=== PATIENT | female | born 2000 | race Caucasian/White ===

== ENCOUNTER → 2020-02-02 | Outpatient (CLI) | payer OTHER ==
--- NOTE | 2020-02-02 18:01 | Diagnostic Imaging Report ---
INDICATION: Back pain. EXAMINATION: Scoliosis standing view. FINDINGS: There is very slight leftward convexity lower thoracic curvature of less than 5 degrees. No segmentation anomaly or dysraphism. No lateral views. IMPRESSION: There is very minimal leftward convexity curvature of the lower thoracic spine which could be positional and measures less than 5 degrees. Dictated by: Dictated on workstation # [id number]
== END ==
LOC: RAD 16:53
PROVIDERS: ATTEND Internal Medicine
DX: M54.9 Dorsalgia, unspecified (principal)
CPT/HCPCS: 72081

== ENCOUNTER 2022-04-27 18:59 | Emergency (ER) | payer OTHER ==
[~2022-04-27] VITALS: Ht 172.7 cm; Wt 81.6 kg
--- NOTE | 2022-04-27 19:32 | ED Neck-Back Pain/Injury ---
General Chief Complaint: Head/Cervical Problems Stated Complaint: NECK POPPED,NERVE PAIN,UNABLE TO TURN HEAD Nursing Triage Note: PT AMB TO FT 1 W C/O NECK PAIN AND STIFFNESS X2 HRS. PT REPORTS SHE TURNED HER HEAD AND FELT A POP, SINCE THEN PT HAS BEEN EXPERIENCING POOR ROM AND PAIN. PT A&OX4. Source of Information: Patient Exam Limitations: No Limitations History of Present Illness Date Seen by Provider: Apr 27, 2022 Time Seen by Provider: 19:32 Allergies and Home Medications Allergies Coded Allergies: No Known Drug Allergies (Unverified , 04/27/22) Past Fqdkbms-Ededzq-Xbalmn Hx Patient Social History Tobacco Use?: No Use of E-Cig and/or Vaping dev: No Substance use?: No Alcohol Use?: No Immunizations Up To Date Influenza Vaccine Up-to-Date: No; Not Current First/Initial COVID19 Vaccinat: NONE Second COVID19 Vaccination Bam: NONE Third COVID19 Vaccination Date: NONE COVID19 Vaccine [employer] Work[employer]: NONE Past Medical History Last Menstrual Period: Apr 24, 2022 Physical Exam Vital Signs Vital Signs - First Documented 04/27/22 19:04 Temp 36.6 Pulse 110 Resp 20 B/P (MAP) 128/74 (92) Pulse Ox 98 O2 Delivery Room Air Capillary Refill : Less Than 3 Seconds Height, Weight, BMI Height: '" Weight: lbs. oz. kg; 27.00 BMI Method: Progress/Results/Core Measures Results/Orders My Orders Orders - TK CHASE APRN Urine Bedside (04/27/22 19:04) Ed Iv/Invasive Line Start (04/27/22 19:04) Ct Angio Head/Neck (04/27/22 19:28) Ed Iv/Invasive Line Start (04/27/22 19:28) Iohexol Injection (Omnipaque 350 Mg/Ml 1 (04/27/22 20:00) Received Contrast (Hold Metformin- Contr (04/27/22 20:00) Ns (Ivpb) (Sodium Chloride 0.9% Ivpb Bag (04/27/22 20:00) Rx-Cyclobenzaprine Tablet (Rx-Flexeril T (04/27/22 20:18) Medications Given in ED Current Medications Medications Dose Ordered Sig/Aaliyah Route Start Time Stop Time Status Last Admin Dose Admin Iohexol 75 ml ONCE ONCE IV 04/27/22 20:00 04/27/22 20:02 DC 04/27/22 20:06 75 ML Sodium Chloride 100 ml ONCE ONCE IV 04/27/22 20:00 04/27/22 20:02 DC 04/27/22 20:06 80 ML Vital Signs/I&O 04/27/22 19:04 Temp 36.6 Pulse 110 Resp 20 B/P (MAP) 128/74 (92) Pulse Ox 98 O2 Delivery Room Air Blood Pressure Mean: 92 Departure Impression Primary Impression: Neck pain Disposition: HOME, SELF-CARE Condition: Stable Departure-Patient Inst. Decision time for Depature: 20:25 Referrals: CHANG MOSQUEDA APRN (PCP) Primary Care Physician [facility] (Family) Primary Care Physician Patient Instructions: Neck Pain ED Add. Discharge Instructions: Plan: 1. Continue to use heat pad 20 minutes at a time for comfort. 2. You can take Flexeril 10 mg by mouth every 8 hours as needed for muscle spasm/pain. Do not drive while taking. 3. Follow-up with your primary care provider regarding persistent symptoms. 3. Return to the ER for any new, concerning, worsening symptoms. All discharge instructions reviewed with patient and/or family. Voiced understanding. TK CHASE APRN Apr 27, 2022 19:32
[2022-04-27] MEDS ORDERED: HOLD METFORMIN - RECEIVED CONTRAST 20 ML VIAL IV SCH (20:00)
[2022-04-27] MEDS ORDERED: IOHEXOL 350 MG/ML 100 ML (OMNIPAQUE 350) VIAL IV ONE (20:00)
[2022-04-27] MEDS ORDERED: NS 100 ML (IVPB) BAG IV ONE (20:00)
--- NOTE | 2022-04-27 20:09 | Diagnostic Imaging Report ---
INDICATION: Popping sensation in neck, pain. TECHNIQUE: Contiguous noncontrast images were obtained from the skull base through the vertex. After intravenous contrast administration, helical CT angiography of the neck was performed. Source data was reformatted into 3D MIP projections. Delayed post contrast acquisition was also obtained. Auto Exposure Controls were utilized during the CT exam to meet ALARA standards for radiation dose reduction. There is no prior CT for comparison. Precontrast head CT demonstrates no extra-axial fluid collection. No intracranial hemorrhage. No intracranial mass or mass effect. Calvarial windows are unremarkable. CTA neck findings: Aortic arch and great vessel origins are patent and without stenosis. The common carotid arteries, carotid bifurcations, internal carotids and external carotids are patent and without stenosis or dissection. The vertebral arteries are patent on both sides and without stenosis or dissection. There is no soft tissue mass or hematoma. Cervical vertebrae are normal in height and alignment with no fracture or subluxation. CTA head findings: The distal internal carotid arteries, anterior cerebral arteries, and middle cerebral arteries are patent. The distal vertebral arteries and basilar artery and posterior cerebral arteries are patent. There is no major vessel stenosis or occlusion or aneurysmal disease. The dural venous sinuses are patent. Postcontrast images show no enhancing intracranial lesion. IMPRESSION: Negative CT head Negative CTA of the head and neck. Dictated by: Dictated on workstation # [id number]
[2022-04-27] MEDS ORDERED: RX-CYCLOBENZAPRINE 10 MG (FLEXERIL) TAB PPK#3 PO STA (20:18)
[2022-04-27 20:39] VITALS: BP 109/72
== END 2022-04-27 20:45 | disposition home or self-care (01) ==
LOC: EDUNIT# 18:59 → ER 19:01
DX: M54.2 Cervicalgia (principal); Z28.310 Unvaccinated for COVID-19; X50.1XXA Overexertion from prolonged static or awkward postures, initial encounter
CPT/HCPCS: 70496; 70498; 84703